=== PATIENT | male | born 1995 | race Caucasian/White ===

== ENCOUNTER 2019-09-29 02:54 | Emergency (ER) | payer OTHER, SELFPAY ==
[2019-09-29 02:56] VITALS: BP 120/74; PULSE 97; RESP 20; TEMP 36.3; O2SAT 100
--- NOTE | 2019-09-29 03:16 | ED.FEVER ---
HPI - Fever General Chief Complaint: Fever Stated Complaint: SORE THROAT Time Seen by Provider: 09/29/19 03:06 History of Present Illness HPI Narrative: SOre throat and fever sfor the past 4 days. Now tonsils are enlarged and he has pain with swallowing. He was seen by his PCP and had negative strep test. Came in tonight because he continues to have pain. Additionally he c/o of fatigue and back pain. Related Data Home Medications Medication Instructions Recorded Confirmed No Home Medications 09/27/19 09/27/19 Allergies Allergy/AdvReac Type Severity Reaction Status Date / Time No Known Allergies Allergy Verified 09/27/19 15:54 Review of Systems Review of Systems: All systems reviewed & are unremarkable except as noted in HPI and below Constitutional: Constitutional: Reports chills, Reports fatigue and Reports fever(s) Eyes: Eyes: Denies change in vision ENT: Denies dizziness and Reports sore throat Cardiovascular: Cardiovascular: Denies chest pain Respiratory: Respiratory: Denies cough Gastrointestinal: Gastrointestinal: Denies abdominal pain and Denies nausea Musculoskeletal: Musculoskeletal: Reports back pain Neurologic: Denies weakness PMFSH Social History Social History Smoking status: Never smoker Alcohol intake: current Gender identity (if verbalized by the patient): Male Exam Const: General: healthy appearing, no acute distress and alert Nutritional Appearance: well nourished Orientation/consciousness: patient oriented x3 Limitations: no limitations HENMT: Teeth and gingiva: dentition normal Throat: abnormal tonsil bilateral erythema, exudates and other (enlarged) Neck: Neck: normal visual inspection and no lymphadenopathy Resp: Effort & Inspection: normal respiratory effort Auscultation: clear to auscultation bilaterally Cardio: Rate: regular rate Rhythm: regular rhythm Skin: General skin exam: normal color Rashes: no rashes Neuro: General: patient oriented x3 and moves all extremities Other: mildly hoarse Extrem: General: normal to inspection Course Vital Signs Vital signs: Vital Signs Temperature 36.3 C L 09/29/19 02:56 Pulse Rate 97 09/29/19 02:56 Respiratory Rate 20 09/29/19 02:56 Blood Pressure 120/74 09/29/19 02:56 Pulse Oximetry 100 09/29/19 02:56 Temperature 36.3 C L 09/29/19 02:56 Pulse Rate 80 09/29/19 03:47 Respiratory Rate 18 09/29/19 03:47 Blood Pressure 129/77 09/29/19 03:47 Pulse Oximetry 99 09/29/19 03:47 MDM - Fever Differential Diagnosis Differential diagnosis: Likely influenza and other (strep, mono ) Medical Records Attestation: I reviewed the patient's medical records. Lab Data Attestation: I reviewed the patient's lab results. Discharge Plan Discharge Clinical Impression: Acute tonsillitis Qualifiers: Pharyngitis/tonsillitis etiology: unspecified etiology Qualified Code(s): J03.90 - Acute tonsillitis, unspecified Patient Disposition: Home, Self-Care Condition: Stable Instructions: Tonsillitis (ED) Prescriptions: No Action No Home Medications RF: 0 Follow-up/Referrals: Kita Jiménez DO [Primary Care Provider] - Discharge Date/Time: 09/29/19 03:48
[2019-09-29] MEDS: KETOROLAC (*BKC) 60 MG/2 ML VIAL IM (03:36)
[2019-09-29 03:47] VITALS: BP 129/77; PULSE 80; RESP 18; O2SAT 99
== END 2019-09-29 03:48 | disposition home or self-care (01) ==
PROVIDERS: Emergency Provider Emergency Medicine; PCP Family Medicine
DX: J03.90 Acute tonsillitis, unspecified (principal)
CPT/HCPCS: 96372; 99284; J1100; J1885

== ENCOUNTER 2020-07-07 11:52 | Outpatient (NON) | payer OTHER, SELFPAY ==
[2020-07-08 14:12] LABS: SARS-CoV-2 RNA PCR Positive
== END 2020-07-07 11:53 ==
LOC: ANHCOVIDDT 11:53
PROVIDERS: PCP Family Medicine; Visit Provider Family Medicine
DX: U07.1 COVID-19 (principal)
CPT/HCPCS: 87635; C9803; U0003

== ENCOUNTER → 2020-12-22 07:51 | Outpatient (CLI) | payer OTHER, SELFPAY ==
--- NOTE | ~2020-12-22 | MR_ITS ---
EXAMINATION: MR brain/brain stem wo con EXAM DATE: 12/22/2020 08:25 INDICATION: Headaches, mainly frontal, with visual disturbance. Bilateral hand foot numbness and ting ling. Brain follow-up and fatigue. TECHNIQUE: Magnetic resonance imaging (MRI) of the brain/brain stem obtained without contrast. Sagitt al T1, axial diffusion, gradient echo (T2*), T1, T2, FLAIR sequences obtained. Comparison is made to prior examination from 05/17/2018. FINDINGS: There are no areas of restricted diffusion to suggest acute infarction. There is no acute hemorrhage seen on the T2*, a hemosiderin sensitive sequence. No intraparenchymal brain mass. The ve ntricles are normal in size. There are no extra-axial collections. Flow voids are seen in the cereb ral arteries on the T2-weighted sequences consistent with their expected patency. The orbits are unr emarkable. Soft tissue is unremarkable. IMPRESSION: 1. Normal brain MRI examination. Reviewed, dictated and finalized at location A.
== END ==
PROVIDERS: PCP Physician Assistant Medical; Visit Provider Physician Assistant Medical
DX: R51.9 Headache, unspecified (principal)
CPT/HCPCS: 70551

== ENCOUNTER 2021-10-27 09:40 | Outpatient (CLI) | payer OTHER, SELFPAY | END 2021-10-27 09:41 | disposition home or self-care (01) | LOC: ANHLAB 09:41 | PROVIDERS: PCP Family Medicine; Visit Provider Internal Medicine Pulmonary Disease | DX: R06.00 Dyspnea, unspecified (principal) | CPT/HCPCS: 36415; 86038 ==

== ENCOUNTER 2021-11-15 08:05 | Outpatient (CLI) | payer OTHER, SELFPAY ==
--- NOTE | 2021-11-15 16:14 | WPDPFTINT ---
PFT Procedure Performed PFT Procedure Performed Spirometry with Pre/Post Bronchodilator Plethysmography (Lung Vol) Diffusing Cap (DLCO) Flow Vol Loop PFT Interpretation This is a pulmonary function test with pre and post-bronchodilator spirometry, plethysmography and diffusing capacity. The test was performed and results interpreted in accordance with the 2019 and 2005 ATS/ERS Task Force guidelines respectively using the Global Lung Function Initiative-2012 reference equations. Patient demonstrated good effort and cooperation. Reproducibility criteria were met. The quality of the pre bronchodilator spirometry maneuver was Grade A and post bronchodilator spirometry maneuver was Grade A. Findings: Spirometry: The contour the inspiratory and expiratory flow tracing are normal. The pre bronchodilator FVC is 5.60 L, 108% predicted. The pre bronchodilator FEV1 is 4.85 L, 111% predicted. The pre bronchodilator FEV1: FVC ratio is 87%. The post bronchodilator FVC is 5.74 L, representing a 3% increase. The post bronchodilator FEV1 is 5.16 L, representing a 6% increase. The post bronchodilator FEV1: FVC ratio was 90%. Plethysmography: The total lung capacity 6.68 L, 103% predicted. The functional residual capacity is 2.91 L, 94% predicted. The residual volume is 1.08 L, 77% predicted. Diffusing capacity: The diffusion capacity on adjusted for hemoglobin and carboxyhemoglobin is 34.1, 95% predicted. The diffusing capacity adjusted for alveolar volume is 5.33, 97% predicted. Impression: The spirometry is normal without evidence of an obstructive abnormality. There is no significant improvement after inhaling a single dose of albuterol. The lung volumes are normal. The diffusing capacity is normal. There are no prior studies for comparison
== END 2021-11-15 08:06 | disposition home or self-care (01) ==
PROVIDERS: PCP Family Medicine; Visit Provider Internal Medicine Pulmonary Disease
DX: R06.00 Dyspnea, unspecified (principal)
CPT/HCPCS: 94060; 94726; 94729

== ENCOUNTER 2024-06-18 09:04 | Outpatient (CLI) | payer OTHER, SELFPAY ==
[2024-06-18 13:20] LABS: Alanine Aminotransferase 28 U/L (6-50); Albumin Level 4.5 g/dL (3.5-5.1); Alkaline Phosphatase 53 U/L (38-126); Anion Gap 9 mmol/L (4-12); Aspartate Amino Transferase 42 U/L (17-59); Bilirubin,Total 0.5 mg/dL (0.2-1.3); Blood Urea Nitrogen 14 mg/dL (9-20); CRP < 0.5 mg/dL (<1.0); Calcium 9.3 mg/dL (8.4-10.2); Carbon Dioxide 25 mmol/L (22-30); Chloride 105 mmol/L (98-107); Estimated Glomerular Filt Rate > 60; Glucose 97 mg/dL (65-110); Sodium 139 mmol/L (137-145)
[2024-06-18 13:21] LABS: Parathyroid Intact 19.9 pg/mL (14.5-75.2)
[2024-06-18 13:27] LABS: Basophils Percent Auto 0.8 % (0.2-1.2); Eosinophils Absolute Auto 0.1 K/mm3 (0-0.3); Eosinophils Percent Auto 2.5 % (0-4.4); Hematocrit 45.7 % (42.0-52.0); Hemoglobin 14.6 g/dL (14.0-18.0); Immature Granulocyte Absolute 0.01 K/mm3 (0.00-0.031); Immature Granulocyte Percent A 0.2 % (0-0.5); Lymphocytes Absolute Auto 2.09 K/mm3 (0.9-3.2); Lymphocytes Percent Auto 39.7 % (18.3-44.2); Mean Corpuscular HGB Conc 31.9 g/dl (32-36); Mean Corpuscular Hemoglobin 27.9 pg (26-34); Mean Corpuscular Volume 87.2 fl (80-100); Monocytes Absolute Auto 0.6 K/mm3 (0.1-0.6); Monocytes Percent Auto 10.5 % (2.6-8.5); Neutrophils Absolute Auto 2.4 K/mm3 (1.3-6.7); Neutrophils Percent Auto 46.3 % (45.5-73.1); Platelet Count Result 221 k/mm3 (150-375); Red Blood Count 5.24 M/mm3 (4.6-6.20); Red Cell Distribution Width 12.8 % (11.5-14.5); White Blood Count 5.3 K/mm3 (4.5-10.0)
[2024-06-18 14:19] LABS: Folic Acid 14.6 ng/mL (2.76->20)
[2024-06-18 14:20] LABS: Erythrocyte Sedimentation Rate 5 mm/hr (0-20)
[2024-06-18 14:44] LABS: Iron 82 ug/dL (49-181)
[2024-06-18 14:57] LABS: Percent Iron Saturation 27 % (20-50)
== END 2024-06-18 09:05 | disposition home or self-care (01) ==
LOC: ANHGOSHLAB 09:06
PROVIDERS: PCP Family Medicine; Visit Provider Nurse Practitioner Family
DX: G43.909 Migraine, unspecified, not intractable, without status migrainosus (principal); B94.8 Sequelae of other specified infectious and parasitic diseases; I73.81 Erythromelalgia
CPT/HCPCS: 36415; 80053; 82607; 82728; 82746; 83540; 83550; 83970; 84443; 85025; 85652; 86038; 86039; 86140

== ENCOUNTER 2024-06-21 14:22 | Outpatient (CLI) | payer OTHER, SELFPAY ==
--- NOTE | ~2024-06-21 | MR_ITS ---
EXAMINATION: MR brain/brain stem wo con DATE: 06/21/2024 14:53 INDICATION: Headache. TECHNIQUE: Magnetic resonance imaging (MRI) of the brain and brainstem was performed without intraven ous contrast. COMPARISON: Brain MRI 12/22/2020 FINDINGS: There is no intracranial hemorrhage, acute infarction, or abnormal intracranial mass lesion . The ventricles are normal in size. The paranasal sinuses are clear. The orbits are normal. The mast oid air cells are normal. IMPRESSION: 1. Normal brain. Reviewed, dictated and finalized at location A. IMPRESSION: 1. Normal brain.
== END 2024-06-21 14:23 | disposition home or self-care (01) ==
LOC: GOSHIMG 14:25
PROVIDERS: PCP Family Medicine; Visit Provider Nurse Practitioner Family
DX: G43.909 Migraine, unspecified, not intractable, without status migrainosus (principal)
CPT/HCPCS: 70551